=== PATIENT | female | born 1970 | race Caucasian/White ===

== ENCOUNTER 2016-06-09 17:55 | Emergency (ER) | payer OTHER ==
[~2016-06-09] VITALS: Ht 170.2 cm; Wt 85.0 kg
[~2016-06-09 17:55] MED LIST: CYCL-36 PO
[2016-06-09 17:57] VITALS: BP 187/96; PULSE 100; RESP 16; TEMP 98.5; O2SAT 96
--- NOTE | 2016-06-09 18:00 | PD ---
Physical Exam Time Seen by Provider: 17:59 Narrative 46 y/o female presents for evaluation of cough for the past few weeks, now developing a chest pain that is reproduced with inspiration. vital signs reviewed. Seen at triage desk. Awaiting bed placement. Data Data Last Documented VS Vital Signs Date Time Temp Pulse Resp B/P Pulse Ox O2 Delivery O2 Flow Rate FiO2 06/09/16 17:57 98.5 100 16 187/96 96 MDM Medical Record Reviewed: Yes Supervised Visit with LATRELL: Raza Wing June 09, 2016 18:00
--- NOTE | 2016-06-09 18:40 | PD ---
HPI Chief Complaint: Chest Pain Time Seen by Provider: 18:20 Travel History International Travel<30 days: No Contact w/Intl Traveler<30days: No Traveled to known affect area: No History of Present Illness HPI Patient comes in complaining of left-sided chest pain that is sharp stabbing like in nature ongoing for 4 days. Pain is there with coughing, deep inspiration, and laying flat. Patient did taking Tylenol and Advil that seemed to help alleviate her symptoms. Patient states approximately a week ago she had flu like symptoms that resolved however she continues to cough and then developed left-sided chest pain. Patient's only medical history is SVT. Denies any shortness of breath, nausea, vomiting, abdominal pain, back pain, headache, numbness or tingling anywhere, or . PFSH Past Medical History Arthritis: No Asthma: No Blood Disorders: No Heart Rhythm Problems: Yes (SVT) Cancer: No Cardiovascular Problems: Yes (TACHYCARDIA) Diabetes: No Diminished Hearing: No Endocrine: No Gastrointestinal Disorders: Yes (recent epigastric pain after eating, lasting 1 week ) Genitourinary: Yes (FREQUENT BLADDER INFECTIONS) Immune Disorder: No Musculoskeletal: No Neurologic: No Psychiatric: No Reproductive: No Respiratory: No Immunizations Current: Yes Seizures: No Thyroid Disease: No ?: Not LMP: LAST MONTH : 4 Para: 3 Tubal Ligation: Yes Past Surgical History Cardiac Surgery: Yes (ABLATION) Section: Yes (X 2) Gynecologic Surgery: Yes () Other Surgery: Yes (tubal ligation, x2, breast surgery (cosmetic)) Social History Alcohol Use: Yes (OCCASIONALLY) Tobacco Use: Yes (1/2 PPD) Substance Use: Yes (marijuana) Allergies-Medications (Allergen,Severity, Reaction): Coded Allergies: Contrast Media (Verified Allergy, Severe, hives, 06/09/16) Codeine (Verified Allergy, Intermediate, HIVES, 06/09/16) Reported Meds & Prescriptions Reported Meds & Active Scripts Active Naprosyn (Naproxen) 500 Mg Tab 500 Mg PO Q12HR PRN Tramadol (Tramadol HCl) 50 Mg Tab 50 Mg PO Q8H PRN Review of Systems Except as stated in HPI: all other systems reviewed are Neg Physical Exam Narrative GENERAL: Well-developed, overly nourished, in no acute distress, and non-ill appearing. SKIN: Focused skin assessment warm and dry. HEAD: Atraumatic. Normocephalic. EYES: Pupils equal and round. EOMI. No scleral icterus. No injection or drainage. ENT: No nasal bleeding or discharge. Mucous membranes pink and moist. NECK: Trachea midline. No JVD. Supple. No nuclear rigidity. CARDIOVASCULAR: Regular rate and rhythm. No murmur appreciated. RESPIRATORY: No accessory muscle use. No respiratory distress. Clear to auscultation. Breath sounds equal bilaterally. MUSCULOSKELETAL: No obvious deformities. No clubbing. No cyanosis. No edema. Full range of motion. NEUROLOGICAL: Awake and alert. No obvious cranial nerve deficits. Motor grossly within normal limits. Normal speech. PSYCHIATRIC: Appropriate mood and affect; insight and judgment normal. Data Data Orders Electrocardiogram (06/09/16 ) Basic Metabolic Panel (Bmp) (06/09/16 18:31) Ckmb (Isoenzyme) Profile (06/09/16 18:31) Complete Blood Count With Diff (06/09/16 18:31) D-Dimer (06/09/16 18:31) Magnesium (Mg) (06/09/16 18:31) Prothrombin Time / Inr (Pt) (06/09/16 18:31) Act Partial Throm Time (Ptt) (06/09/16 18:31) Troponin I (06/09/16 18:31) Chest, Single Ap (06/09/16 18:31) Ecg Monitoring (06/09/16 18:31) Bilateral Bp Monitoring (06/09/16 18:31) Iv Access Insert/Monitor (06/09/16 18:31) Oximetry (06/09/16 18:31) Oxygen Administration (06/09/16 18:31) Aspirin Chew (Aspirin Chew) (06/09/16 18:45) Sodium Chloride 0.9% Flush (Ns Flush) (06/09/16 18:45) Acetaminophen (Tylenol) (06/09/16 19:00) CKMB (06/09/16 18:50) CKMB% (06/09/16 18:50) Sodium Chlor 0.9% 1000 Ml Inj (Ns 1000 M (06/09/16 19:45) Ct Pulmonary Angiogram (06/09/16 ) Methylprednisolone So Succ Inj (Solumedr (06/09/16 20:30) Diphenhydramine Inj (Benadryl Inj) (06/09/16 20:30) Ckmb (Isoenzyme) Profile (06/09/16 21:20) Troponin I (06/09/16 21:20) Iohexol 350 Inj (Omnipaque 350 Inj) (06/09/16 22:11) Labs MDM Medical Decision Making Medical Screen Exam Complete: Yes Emergency Medical Condition: Yes Interpretation(s) EKG reviewed by Dr. Nation shows sinus rhythm with ventricular rate of 85. No STEMI Differential Diagnosis Acute coronary syndrome, PE, costochondritis, angina, pneumonia, or other Narrative Course Patient states she had a hives reaction from MRI contrast that she didn't notice. States the nurse told her about it states they gave her Benadryl and hives went away. Discussed this with radiologist Dr. Guy, who is in agreement with premedicating patient prior to CT scan. The patients chest pain by history and evaluation appears noncardiac, nor noncardiopulmonary in etiology. Evaluation revealed no evidence of cardiac involvement at this time. There is no clinical evidence to suggest thoracic aortic aneurysms or pathology, nor evidence to suggest pulmonary embolism, pericarditis, pneumothorax, nor pneumonia at this time. The patient has minimal risk factors for cardiac disease, pulmonary embolism or aortic disease. Clinical suspicion was discussed with patient and the patient was instructed to follow up with Cardiology for potential outpatient evaluation. I discussed this management with the patient and the patient understands the importance or acute follow up with cardiology for outpatient stress testing. The patient was instructed to return at any time if chest pain recurs, persists, changes or worsens in anyway while awaiting follow up. The patient agreed with plan. Patient in no obvious distress upon re-evaluation. All pertinent laboratory/ Radiology result(s) discussed with patient/family. Discussed patient with Dr. Conrad, who saw and evaluated the patient and is in agreement with plan of care and disposition.. Any questions/concerns in reference to patient diagnosis/ condition discussed and clarified prior to patient's discharge. Reinforced sheer importance of close follow up with patient's primary physician or primary care clinic. Instructed patient to return to ED immediately, if symptoms return/ worsen. Pt showed understanding of above instructions. Further instructions and recommendations were detailed in discharge paperwork. Pt ambulated without difficulty out of ED at discharge. Diagnosis Primary Impression: Costochondritis Additional Impression: Pulmonary nodule less than 6 cm determined by computed tomography of lung Patient Instructions: Costochondritis (DC), General Instructions, How to Stop Smoking (ED), Noncardiac Chest Pain (ED), Pulmonary Nodules (ED) Additional Instructions: Follow-up with your durable medical equipment repairer next week for reevaluation. Follow-up with your primary care doctor and/or durable medical equipment repairer to have a repeat CT scan in 6 months for reevaluation of incidental finding of nodule noted on lung today. Stop smoking. Take all medication as prescribed. Return to the emergency department if symptoms get worse. Med/Other Pt SpecificInfo: Prescription(s) given Scripts Naproxen (Naprosyn)500 Mg Dlp019 Mg PO Q12HR PRN (PAIN SCALE 1 TO 10) #14 TAB Ref 0 Prov:Agustin Conrad MD 06/09/16 Tramadol 50 Mg Tab50 Mg PO Q8H PRN (PAIN GREATER THAN 7) #7 TAB Ref 0 Prov:Agustin Conrad MD 06/09/16 Disposition: 01 DISCHARGE HOME Condition: Stable Neptali Ayon June 09, 2016 18:40 Random Glucose 158 MG/DL Calcium Level 8.8 MG/DL Magnesium Level 2.3 MG/DL Total Creatine Kinase 122 U/L 48 U/L Creatine Kinase MB 0.8 NG/ML Troponin I LESS THAN 0.02 LESS THAN 0.02 NG/ML NG/ML MDM Medical Decision Making Interpretation(s) EKG reviewed by Dr. Nation shows sinus rhythm with ventricular rate of 85. No STEMI Narrative Course Patient states she had a hives reaction from MRI contrast that she didn't notice. States the nurse told her about it states they gave her Benadryl and hives went away. Discussed this with radiologist Dr. Guy, is in agreement with. Premedicated using patient prior to CT scan. Diagnosis Primary Impression: Costochondritis Additional Impression: Pulmonary nodule less than 6 cm determined by computed tomography of lung Patient Instructions: Costochondritis (DC), General Instructions, How to Stop Smoking (ED), Noncardiac Chest Pain (ED), Pulmonary Nodules (ED) Additional Instructions: Follow-up with your durable medical equipment repairer next week for reevaluation. Follow-up with your primary care doctor and/or durable medical equipment repairer to have a repeat CT scan in 6 months for reevaluation of incidental finding of nodule noted on lung today. Stop smoking. Take all medication as prescribed. Return to the emergency department if symptoms get worse. Med/Other Pt SpecificInfo: Prescription(s) given Scripts No Active Prescriptions or Reported Meds Disposition: 01 DISCHARGE HOME Condition: Stable Neptali Ayon June 09, 2016 18:40
[2016-06-09] MEDS ORDERED: SODIUM CHLORIDE 0.9% FLUSH 10 ML FLUSH IVF PRN (18:45)
[2016-06-09] MEDS ORDERED: ASPIRIN 81 MG CHEW TAB PO ONE (18:45)
--- NOTE | 2016-06-09 18:57 | RADRPT ---
EXAM DATE/TIME: 06/09/2016 18:45 [facility] COMPARISON: CHEST SINGLE AP, January 07, 2015, 19:06. INDICATIONS : Left sided chest pain and shortness of breath. MEDICAL HISTORY : None. SURGICAL HISTORY : Cardiac ablation. ENCOUNTER: Initial ACUITY: 4 - 6 days PAIN SCORE: 8/10 LOCATION: Left chest FINDINGS: A single view of the chest demonstrates the lungs to be symmetrically aerated without evidence of mas s, infiltrate or effusion. The cardiomediastinal contours are unremarkable. Osseous structures are intact. CONCLUSION: No acute disease. Clayton Rubio MD on June 09, 2016 at 18:54 Board Certified Radiologist. This report was verified electronically.
[2016-06-09] MEDS ORDERED: ACETAMINOPHEN 325 MG TAB PO ONE (19:00)
[2016-06-09 19:01] LABS: AUTOMATED NEUTROPHIL # 6.1 TH/MM3 (1.8-7.7); BASOPHIL % 0.5 % (0.0-2.0); EOSINOPHIL # 0.2 TH/MM3 (0-0.4); EOSINOPHIL % 2.1 % (0.0-4.0); HEMATOCRIT 41.1 % (35.0-46.0); HEMO FLAGS DIFF FINAL; LYMPH % 22.5 % (9.0-44.0); MEAN CELL VOLUME 94.1 FL (80.0-100.0); MEAN CORPUSCULAR HEMOGLOBIN 31.4 PG (27.0-34.0); MEAN CORPUSCULAR HGB CONC 33.4 % (32.0-36.0); MONO % 5.6 % (0.0-8.0); NEUT % 69.3 % (16.0-70.0); PLATELET COUNT 249 TH/MM3 (150-450); RED BLOOD COUNT 4.37 MIL/MM3 (4.00-5.30); RED CELL DISTRIBUTION WIDTH 13.8 % (11.6-17.2); WHITE BLOOD COUNT 8.8 TH/MM3 (4.0-11.0)
[2016-06-09 19:17] LABS: APTT (PATIENT) 23.3 SEC (24.3-30.1); INTERNATIONAL NORMALIZED RATIO 0.9 RATIO; PROTHROMBIN TIME - PATIENT 9.9 SEC (9.8-11.6)
[2016-06-09 19:23] LABS: ANION GAP 7 MEQ/L (5-15); BICARBONATE 25.5 MEQ/L (21.0-32.0); BLOOD UREA NITROGEN 14 MG/DL (7-18); CHLORIDE 105 MEQ/L (98-107); CREATINE KINASE 122 U/L (26-192); GLOMERULAR FILTRATION RATE 47 ML/MIN (>89); MAGNESIUM 2.3 MG/DL (1.5-2.5); POTASSIUM 4.8 MEQ/L (3.5-5.1); SODIUM (NA) 137 MEQ/L (136-145)
[2016-06-09 19:35] LABS: CKMB 0.8 NG/ML (0.5-3.6)
[2016-06-09] MEDS ORDERED: SODIUM CHLOR 0.9% 1000 ML INJ 1,000 ML IV ONE (19:45)
[2016-06-09] MEDS ORDERED: methylPREDNISolone SOD SUCC 40 MG/1 ML VIAL IV PUSH ONE (20:30)
[2016-06-09] MEDS ORDERED: diphenhydrAMINE HCL 50 MG/ML VIAL IV PUSH ONE (20:30)
[2016-06-09] MEDS ORDERED: IOHEXOL 350 MG/ML 10 ML VIAL (for RAD DIAG) IV ONE (22:11)
--- NOTE | 2016-06-09 22:27 | RADRPT ---
EXAM DATE/TIME: 06/09/2016 22:00 1 [facility] COMPARISON: CT ABDOMEN & PELVIS W/O CONTRAST, January 07, 2015, 20:57. INDICATIONS : Shortness of breath and chest pain. IV CONTRAST: 70 cc Omnipaque 350 (iohexol) IV RADIATION DOSE: 16.6 CTDIvol (mGy) MEDICAL HISTORY : Cardiovascular disease. SURGICAL HISTORY : Tubal ligation. ENCOUNTER: Initial ACUITY: 4 - 6 days PAIN SCALE: 7/10 LOCATION: Bilateral chest Patient was premedicated for underlying contrast media allergy. TECHNIQUE: Volumetric scanning of the chest was performed using a pulmonary embolism protocol MIP images were re constructed. Using automated exposure control and adjustment of the mA and/or kV according to patien t size, radiation dose was kept as low as reasonably achievable to obtain optimal diagnostic quality images. FINDINGS: PULMONARY ARTERIES: No filling defects are seen in the pulmonary arteries through the segmental level. LUNGS: There is no consolidation or pneumothorax . There is a single non-calcified 5 mm nodule in the right lower lobe. PLEURAE: There is no pleural thickening or pleural effusion. MEDIASTINUM: There is good visualization of the great vessels of the middle mediastinum. No evidence of mediastin al or hilar adenopathy/mass. MUSCULOSKELETAL: Within normal limits for patient age. MISCELLANEOUS: The visualized upper abdominal organs demonstrate no acute abnormality. Bilateral breast implants are again noted. CONCLUSION: 1. No evidence of pulmonary embolism. 2. 5 mm noncalcified pulmonary nodule in the right lower lobe which is a nonspecific finding. Short-t erm CT followup is recommended beginning in 6 months with a noncontrast chest CT. Clayton Rubio MD on June 09, 2016 at 22:22 Board Certified Radiologist. This report was verified electronically.
[2016-06-09 22:57] LABS: CREATINE KINASE 48 U/L (26-192)
[2016-06-09] MEDS ORDERED: TRAM50TA PO (23:09)
[2016-06-09] MEDS ORDERED: NAPR500 PO (23:09)
[2016-06-09 23:38] VITALS: BP 178/82
--- NOTE | 2016-06-10 18:01 | EKG ---
Date Performed: 06/09/2016 Time Performed: 18:10:19 PTAGE: 46 years EKG: Sinus rhythm MINIMAL ST DEPRESSION BORDERLINE ECG Compared to prior tracing no significant change. PREVIOUS TRACING : 01/07/2015 18.43 DOCTOR: Kevin Reese Interpretating Date/Time 06/10/2016 18:01:13
== END 2016-06-10 | disposition home or self-care (01) ==
LOC: NEPC 17:55
DX: M94.0 Chondrocostal junction syndrome [Tietze] (principal); R91.1 Solitary pulmonary nodule; R05 Cough; R94.31 Abnormal electrocardiogram [ECG] [EKG]; F17.200 Nicotine dependence, unspecified, uncomplicated; Z86.79 Personal history of other diseases of the circulatory system; Z87.448 Personal history of other diseases of urinary system
CPT/HCPCS: 71010; 71275; 80048; 82550; 82552; 83735; 84484; 85025; 85379; 85610; 85730; 93005; 96361; 96374; 96375; 99284; J1200; J2920; J7030; Q9967